=== PATIENT | male | born 1990 | race African-American/Black ===

== ENCOUNTER 2017-10-04 06:40 | Emergency (ER) | payer MEDICAID ==
[~2017-10-04] VITALS: Ht 185.4 cm; Wt 73.0 kg
[2017-10-04] MEDS ORDERED: IPRATROPIUM/ALBUTEROL 0.5-3(2.5)MG/3ML NEB HHN ONE (07:15)
[2017-10-04] MEDS ORDERED: PREDNISONE 20MG TABLET PO ONE (07:15)
[2017-10-04 09:43] VITALS: BP 132/92
== END 2017-10-04 10:11 | disposition home or self-care (01) ==
LOC: ER 06:40
DX: J45.909 Unspecified asthma, uncomplicated (principal); R03.0 Elevated blood-pressure reading, without diagnosis of hypertension; F17.210 Nicotine dependence, cigarettes, uncomplicated; F12.90 Cannabis use, unspecified, uncomplicated
CPT/HCPCS: 71010; 94640; 99283; J7512; J7620